=== PATIENT | male | born 1975 | race Two or more races ===

== ENCOUNTER 2019-01-17 07:57 | Emergency (ER) | payer OTHER ==
[~2019-01-17] VITALS: Ht 165.1 cm; Wt 79.8 kg
[2019-01-17] MEDS ORDERED: SODIUM CHLORIDE 0.9% 1,000 ML IV ONE (09:30)
[2019-01-17] MEDS ORDERED: HYDROcodone-ACET 10/325MG TAB PO ONE (10:15)
[2019-01-17] MEDS ORDERED: cefTRIAXone SOD 1,000 MG VL IM ONE (10:30)
[2019-01-17] MEDS ORDERED: cefTRIAXone 1GM/50ML D5W 50 ML IV ONE (10:45)
[2019-01-17 11:02] VITALS: BP 138/83
== END 2019-01-17 11:03 | disposition home or self-care (01) ==
LOC: ER 07:57
DX: S91.012A Laceration without foreign body, left ankle, initial encounter (principal); S00.83XA Contusion of other part of head, initial encounter; I10 Essential (primary) hypertension; Y08.89XA Assault by other specified means, initial encounter; Y93.89 Activity, other specified; Y99.8 Other external cause status; Y92.148 Other place in prison as the place of occurrence of the external cause
CPT/HCPCS: 70450; 70486; 73110; 73590; 73610; 93005; 96361; 96365; 99284; J0696; J7030